=== PATIENT | female | born 1985 | race Caucasian/White ===

== ENCOUNTER 2019-10-26 05:35 | Inpatient (IN) | payer OTHER ==
[~2019-10-26] VITALS: Ht 162.6 cm; Wt 111.0 kg
[~2019-10-26 05:35] MED LIST: DOCU240C31 PO; IBUP-1222 PO; OXYC-302 PO
[2019-10-26 05:54] VITALS: BP 112/67
[2019-10-26] MEDS ORDERED: SODIUM CITRATE/CITRIC ACID 30 ML UDC PO ONE (06:00)
[2019-10-26] MEDS ORDERED: METOCLOPRAMIDE 5 MG/ML, 2ML IV ONE (06:00)
[2019-10-26] MEDS ORDERED: CALCIUM CARBONATE 500 MG TAB.CHEW PO PRN (06:00)
[2019-10-26] MEDS ORDERED: LACTATED RINGERS 1,000 ML IVBOLUS ONE (06:00)
[2019-10-26] MEDS ORDERED: ONDANSETRON 2MG/ML, 2ML IVPush ONE (06:00)
[2019-10-26] MEDS ORDERED: METOCLOPRAMIDE 5 MG/ML, 2ML ONE (06:02)
[2019-10-26] MEDS ORDERED: NEWBORN KIT ONE (06:03)
[2019-10-26] MEDS ORDERED: SODIUM CITRATE/CITRIC ACID 30 ML UDC ONE (06:03)
[2019-10-26] MEDS ORDERED: OXYTOCIN 30U/ 0.9% NaCL 500ML 500 ML ONE (06:14)
[2019-10-26 06:23] LABS: BASOPHILS # (AUTO) 0.03 x10^3/uL (0-0.1); BASOPHILS % (AUTO) 0 % (0-1); EOSINOPHILS % (AUTO) 1 % (1-7); LYMPHOCYTES # (AUTO) 2.06 x10^3/uL (1-3.4); LYMPHOCYTES % (AUTO) 24 % (22-44); MD NO; MEAN CORPUSCULAR HEMOGLOBIN 27.9 pg (27.0-34.8); MEAN CORPUSCULAR HGB CONC 32.9 g/dL (32.4-35.8); MEAN CORPUSCULAR VOLUME 84.8 fL (80-100); MEAN PLATELET VOLUME 7.6 fL (7.4-10.4); MONOCYTES # (AUTO) 0.53 x10^3/uL (0.2-0.8); MONOCYTES % (AUTO) 6 % (2-9); NEUTROPHILS # (AUTO) 5.84 x10^3/uL (1.8-6.8); NEUTROPHILS % (AUTO) 68 % (42-75); PLATELET COUNT 270 x10^3/uL (130-400); RED BLOOD COUNT 4.18 x10^6/uL (3.82-5.3); RED CELL DISTRIBUTION WIDTH 13.5 % (9.6-15.2)
[2019-10-26] MEDS ORDERED: PREN-3 PO (06:28)
[2019-10-26] MEDS ORDERED: LEVO50TA PO (06:28)
[2019-10-26] MEDS ORDERED: OXYTOCIN 10 UNITS/ML, 1ML ONE (07:12)
[2019-10-26] MEDS ORDERED: PHENYLEPHRINE 10 MG/ML ONE (07:12)
[2019-10-26] MEDS ORDERED: KETOROLAC 30 MG/1 ML ONE (07:12)
[2019-10-26] MEDS ORDERED: EPHEDRINE 50 MG/ML, 1ML ONE (07:12)
[2019-10-26] MEDS ORDERED: ONDANSETRON 2MG/ML, 2ML ONE (07:12)
[2019-10-26] MEDS ORDERED: DEXAMETHASONE 4 MG/ML, 1ML ONE (07:12)
[2019-10-26] MEDS ORDERED: CEFAZOLIN 1,000 MG ONE (07:12)
[2019-10-26] MEDS ORDERED: ALBUTEROL SULFATE 2.5 MG/3 ML NPPB PRN (07:30)
[2019-10-26] MEDS ORDERED: ONDANSETRON 2MG/ML, 2ML IVPush PRN (07:30)
[2019-10-26] MEDS ORDERED: PROMETHAZINE 25 MG/ML, 1ML IV PRN (07:30)
[2019-10-26] MEDS ORDERED: METOPROLOL 1 MG/ML, 5ML IV PRN (07:30)
[2019-10-26] MEDS ORDERED: LABETALOL 5MG/ML, 20ML IV PRN (07:30)
[2019-10-26] MEDS ORDERED: FENTANYL PF 100 MCG/2ML IV PRN (07:30)
[2019-10-26] MEDS ORDERED: HYDROcodone/APAP 7.5-325MG/15ML UDC PO PRN (07:30)
[2019-10-26] MEDS ORDERED: MEPERIDINE/PF 25MG/0.5ML IVPush PRN (07:30)
[2019-10-26] MEDS ORDERED: MIDAZOLAM 1 MG/ML, 2ML IV PRN (07:30)
[2019-10-26] MEDS ORDERED: EPHEDRINE 50 MG/ML, 1ML IVPush PRN (07:30)
[2019-10-26] MEDS ORDERED: HYDROmorphone 2 MG/ML, 1ML IVPush PRN (07:30)
[2019-10-26] MEDS ORDERED: OXYcodone 5 MG/5 ML ORAL.SOL UDC PO PRN (07:30)
[2019-10-26] MEDS ORDERED: hydrALAzine 20 MG/ML, 1ML IV PRN (07:30)
[2019-10-26] MEDS: LACTATED RINGERS 1,000 ML IV SCH ×5 (07:32→23:32)
[2019-10-26] MEDS ORDERED: IBUPROFEN 600 MG TABLET PO PRN (08:00)
[2019-10-26] MEDS ORDERED: METOCLOPRAMIDE 5 MG/ML, 2ML IV PRN (08:00)
[2019-10-26] MEDS ORDERED: ACETAMINOPHEN 325 MG TABLET PO PRN (08:00)
[2019-10-26] MEDS ORDERED: CARBOPROST TROMETHAMINE 250 MCG/ML, 1ML IM PRN (08:00)
[2019-10-26] MEDS ORDERED: BISACODYL 10 MG SUPP PR PRN (08:00)
[2019-10-26] MEDS ORDERED: MEPERIDINE/PF 25MG/0.5ML IM PRN (08:00)
[2019-10-26] MEDS ORDERED: METHYLERGONOVINE 0.2 MG/ML IM PRN (08:00)
[2019-10-26] MEDS ORDERED: ONDANSETRON 2MG/ML, 2ML IV PRN (08:00)
[2019-10-26] MEDS ORDERED: OXYcodone IR 5MG TABLET PO PRN (08:00)
[2019-10-26] MEDS ORDERED: MISOPROSTOL 200 MCG TABLET PR PRN (08:00)
[2019-10-26] MEDS ORDERED: DIPH,PERTUSS(ACELL),TET VAC/PF NC IM-VACC PRN (08:00)
[2019-10-26] MEDS: KETOROLAC 30 MG/1 ML IV SCH ×3 (08:00→21:23)
[2019-10-26] MEDS ORDERED: FENTANYL PF 100 MCG/2ML ONE (08:09)
[2019-10-26] MEDS ORDERED: HYDROmorphone 2 MG/ML, 1ML ONE (08:21)
[2019-10-26] MEDS: PRENATAL VIT/IRON/FA 1 EACH TABLET PO SCH (09:00)
[2019-10-26] MEDS: OXYTOCIN 30U/ 0.9% NaCL 500ML 500 ML IV SCH ×2 (09:44→17:32)
[2019-10-26] MEDS ORDERED: HYDROcodone/APAP 7.5-325MG/15ML UDC ONE (10:41)
[2019-10-26 12:45] VITALS: BP 115/70
[2019-10-26 15:35] LABS: BASOPHILS % (AUTO) 0 % (0-1); EOSINOPHILS % (AUTO) 0 % (1-7); LYMPHOCYTES % (AUTO) 8 % (22-44); MD NO; MEAN CORPUSCULAR HEMOGLOBIN 27.7 pg (27.0-34.8); MEAN CORPUSCULAR HGB CONC 32.2 g/dL (32.4-35.8); MEAN CORPUSCULAR VOLUME 86.1 fL (80-100); MEAN PLATELET VOLUME 7.4 fL (7.4-10.4); MONOCYTES # (AUTO) 0.47 x10^3/uL (0.2-0.8); MONOCYTES % (AUTO) 3 % (2-9); NEUTROPHILS # (AUTO) 12.48 x10^3/uL (1.8-6.8); NEUTROPHILS % (AUTO) 89 % (42-75); PLATELET COUNT 249 x10^3/uL (130-400); RED BLOOD COUNT 4.06 x10^6/uL (3.82-5.3); RED CELL DISTRIBUTION WIDTH 13.5 % (9.6-15.2)
[2019-10-26] MEDS: OXYcodone/APAP 5/325MG TABLET PO PRN ×2 (15:36→21:23)
[2019-10-26 16:00] VITALS: BP 102/58
[2019-10-26 20:04] VITALS: BP 94/52
[2019-10-26] MEDS: DOCUSATE 100 MG CAPSULE PO PRN (21:22)
[2019-10-26] MEDS: SIMETHICONE 80 MG CHEW TAB PO PRN (21:22)
[2019-10-27 00:16] VITALS: BP 91/47
[2019-10-27] MEDS: SIMETHICONE 80 MG CHEW TAB PO PRN ×2 (03:30→09:27)
[2019-10-27] MEDS: KETOROLAC 30 MG/1 ML IV SCH ×4 (03:30→22:59)
[2019-10-27] MEDS: OXYTOCIN 30U/ 0.9% NaCL 500ML 500 ML IV SCH ×3 (03:32→23:32)
[2019-10-27] MEDS: LACTATED RINGERS 1,000 ML IV SCH ×6 (03:32→23:32)
[2019-10-27 03:45] VITALS: BP 102/60
[2019-10-27] MEDS: LEVOTHYROXINE 50 MCG TABLET PO SCH (06:07)
[2019-10-27 08:45] VITALS: BP 101/66
[2019-10-27] MEDS: PRENATAL VIT/IRON/FA 1 EACH TABLET PO SCH (09:27)
[2019-10-27 19:30] VITALS: BP 102/69
[2019-10-28] MEDS: KETOROLAC 30 MG/1 ML IV SCH (05:08)
[2019-10-28] MEDS: LEVOTHYROXINE 50 MCG TABLET PO SCH (06:38)
[2019-10-28 07:27] VITALS: BP 128/82
[2019-10-28] MEDS: DOCUSATE 100 MG CAPSULE PO PRN (08:47)
[2019-10-28] MEDS: PRENATAL VIT/IRON/FA 1 EACH TABLET PO SCH (08:47)
[2019-10-28] MEDS: OXYcodone/APAP 5/325MG TABLET PO PRN (11:03)
== END 2019-10-28 11:10 | disposition home or self-care (01) | DRG 785 ==
LOC: LDIP 05:35 → 2NW 11:22
PROVIDERS: ADMIT Obstetrics & Gynecology; ATTEND Obstetrics & Gynecology
PROC: 10D00Z1 Extraction of Products of Conception, Low, Open Approach (ICD-10-PCS; principal; 2019-10-26)
PROC: 0UB70ZZ Excision of Bilateral Fallopian Tubes, Open Approach (ICD-10-PCS; 2019-10-26)
DX: O34.211 Maternal care for low transverse scar from previous cesarean delivery (principal); K66.0 Peritoneal adhesions (postprocedural) (postinfection); O99.214 Obesity complicating childbirth; O99.284 Endocrine, nutritional and metabolic diseases complicating childbirth; O99.824 Streptococcus B carrier state complicating childbirth; Z37.0 Single live birth; Z3A.39 39 weeks gestation of pregnancy; E66.01 Morbid (severe) obesity due to excess calories; E03.9 Hypothyroidism, unspecified; Z88.8 Allergy status to other drugs, medicaments and biological substances; O99.62 Diseases of the digestive system complicating childbirth
CPT/HCPCS: 36415; 85025; 86592; 86850; 86900; 88305; G0378; J0690; J1100; J1170; J1885; J2405; J3010; J2370; J2590; J2765; J7120